=== PATIENT | male | born 1970 | race Caucasian/White ===

== ENCOUNTER 2017-05-16 16:30 | Emergency (ER) | payer OTHER ==
[~2017-05-16] VITALS: Ht 188 cm; Wt 103.0 kg
[~2017-05-16 16:30] MED LIST: IBUPROFEN800 M1 PO; MEDROL DOSEPAK1 PAC PO; ROBITUSSIN W/CO10 ML PO; TESSALON PERLE100 MG PO
[2017-05-16] MEDS ORDERED: LOSARTAN POTASS25 M1 PO (17:45)
[2017-05-16] MEDS ORDERED: CRESTOR5 M1 PO (17:46)
[2017-05-16] MEDS ORDERED: VITAMIN D250000 UNIT PO (17:46)
[2017-05-16] MEDS ORDERED: FISH OIL CONC1000 M1 PO (17:46)
[2017-05-16] MEDS ORDERED: TERBINAFINE HC250 MG PO (17:47)
[2017-05-16] MEDS ORDERED: MONTELUKAST SOD10 M1 PO (17:47)
--- NOTE | 2017-05-16 17:54 | ED ANKLE/FOOT INJURY COMPLAINT ---
History of Present Illness General Chief Complaint: Foot or Ankle Injury Stated Complaint: LFT FOOT PAIN Source: patient, old records Exam Limitations: no limitations Vital Signs & Intake/Output Vital Signs & Intake/Output ED Intake and Output 05/17 0000 05/16 1200 Intake Total Output Total Balance Patient 227 lb Weight Weight Reported by Patient Measurement Method Allergies Coded Allergies: NO KNOWN ALLERGIES (08/15/16) Reconcile Medications Ergocalciferol (Vitamin D2) (Vitamin D2) 50,000 UNIT CAPSULE 1 CAP PO Q2W SUPPLEMENT (Reported) Ibuprofen 800 MG TABLET 1 TAB PO TID pain Ibuprofen 800 MG TABLET 1 TAB PO TID PRN PAIN Losartan Potassium 25 MG TABLET 1 TAB PO DAILY BP (Reported) Montelukast Sodium (Unknown Strength) TABLET (Unknown Dose) PO DAILY UNKNOWN (Reported) Colbert-3 Fatty Acids (Fish Oil Concentrate) 1,000 MG CAPSULE 2 CAP PO DAILY SUPPLEMENT (Reported) Rosuvastatin Calcium (Crestor) 5 MG TABLET 1 TAB PO QPM CHOLESTEROL (Reported ) Terbinafine HCl 250 MG TABLET 1 TAB PO DAILY TOES ON BOTH FEET (Reported) Triage Note: 46M C/O PAIN TO BALL OF LEFT FOOT SINCE YEST. WORSE AFTER WALKING. DENIES INJURY. HAS NOT TAKEN ANYTHING FOR PAIN. MEDICATED WITH MOTRIN IN TRIAGE. DECLINES ICE PACK OFFERED Triage Nurses Notes Reviewed? yes Occurred: yesterday Duration: day(s): (2) Timing: recent history Severity: mild, moderate Severity Numbers: 4 Pain/Injury Location: Left: Foot. Modifying Factors: Worsens With: movement. Associated Symptoms: none HPI: 46-year-old male presents to ER for evaluation complaining of left foot pain and aching painful with palpation and weightbearing over the plantar surface since last night after he was walking outside. The patient is wearing shoes at the time he denies any known injury or trauma. The pain is nonradiating he denies any numbness or tingling to the foot, no history of pain similar to this in the past she is not taken anything for symptoms. No modifying factors otherwise or associated symptoms. (ACE GRANDE,KIT) Past History Travel History Traveled to [place] past 21 day No Medical History Any Pertinent Medical History? see below for history Neurological: NONE EENT: NONE Cardiovascular: aortic aneurysm, aortic stenosis, hypertension Respiratory: obstructive sleep apnea, USES CPAP Gastrointestinal: NONE Hepatic: NONE Renal: NONE Musculoskeletal: NONE Psychiatric: NONE Endocrine: NONE Blood Disorders: NONE Cancer(s): NONE PATTERN FINISHER/Reproductive: NONE Surgical History Surgical History: non-contributory Psychosocial History What is your primary language Yakut Tobacco Use: Never used ETOH Use: denies use Illicit Drug Use: denies illicit drug use Family History Hx Contributory? No (KIT LEARY) Review of Systems Review of Systems Constitutional: Reports: see HPI. Comments Review of systems: See HPI, All other systems negative. Constitutional, no chills no fever, no malaise HEENT: No visual changes no sore throat no congestion Cardiovascular: No chest pain , no palpitation , Skin: no rashes, no change in skin Respiratory: No dyspnea no cough GI: No nausea no vomiting, Muscle skeletal: No joint pain, no back pain, no neck pain, Neurologic: No numbness no headache Psych: No stress Heme/endocrine: No bruising no bleeding Immunology: No lymphadenopathy (KIT LEARY) Physical Exam Physical Exam General Appearance: well developed/nourished, no apparent distress, alert Leg/Knee/Thigh Left: normal range of motion Comments: Well-developed well-nourished patient in no apparent distress. HEENT: Atraumatic, extraocular motion intact Neck: Supple, FROM Back: FROM Respiratory: No respiratory distress. Patient speaking in full complete sentences. UPPPER Extremities: full range of motion Hip/Pelvis: Atraumatic/Stable. FROM. Knee: Atraumatic/stable. FROM. Leg: Atraumatic. Nontender. No edema, 5 out of 5 strength in the lower extremity, normal dorsiflexion of great toe bilaterally, gross sensation is intact Ankle/Foot: Point tenderness over the plantar aspect of the left foot over the distal aspect of the left second third metatarsal, the skin is intact there is no overlying erythema no swelling the rest of the foot is Atraumatic/stable. Skin intact. FROM. No swelling, no effusion. No laxity on exam Pulses: Normal/equal DP/PT pulses bilaterally. Brisk cap refill Neuro: awake, alert, and oriented to person, place and time. There were no obvious focal neurologic abnormalities. Skin: Warm & dry;No appreciable rash on exposed skin Psych: Mood affect normal, normal memory normal judgment. (KIT LEARY) Progress Differential Diagnosis: gout, fracture, dislocation, sprain, contusion, PLANTAR FASCIITIS Plan of Care: Patient clinically appears well there's been no recent injury or trauma imaging deferred symptoms consistent with Costa's neuroma discussed with patient plan of care information provided for podiatry follow-up (KIT LEARY) Departure Departure Time of Disposition: 1809 Disposition: HOME OR SELF CARE Condition: Stable Clinical Impression Primary Impression: Costa's neuroma Referrals: PRITESH ALLRED,YESICA (PCP/Family) JIM RODRIGUEZ,CHUY Additional Instructions: FOLLOW UP WITH BENDING PRESS OPERATOR DR FERNANDEZ. TYLENOL OR MOTRIN EVERY 4-6HOURS. REST, ICE, KEEP LEG ELEVATED. RETURN WITH ANY OCNCERNS THIS PRESCRIPTION WAS SENT TO [facility] Departure Forms: Customer Survey General Discharge Information Prescriptions: Current Visit Scripts Ibuprofen 1 TAB PO TID PRN PAIN #30 TAB (KIT LEARY) PA/BOOM SUPERVISOR Co-Sign Statement Statement: ED Attending supervision documentation- [] I saw and evaluated the patient. I have also reviewed all the pertinent lab results and diagnostic results. I agree with the findings and the plan of care as documented in the PA's/BOOM SUPERVISOR's documentation. [X] I have reviewed the ED Record and agree with the PA's/BOOM SUPERVISOR's documentation. [] Additions or exceptions (if any) to the PAs/BOOM SUPERVISOR's note and plan are summarized below: [] (SALVADOR ALLRED,MARGO)
[2017-05-16] MEDS ORDERED: IBUPROFEN800 M1 PO (18:11)
[2017-05-16 18:19] VITALS: BP 115/74
== END 2017-05-16 18:20 ==
LOC: ERH 16:30
DX: G57.62 Lesion of plantar nerve, left lower limb (principal)